=== PATIENT | female | born 1935 | race Caucasian/White ===

== ENCOUNTER 2016-12-10 03:16 | Emergency (ER) | payer MEDICARE, BC ==
[~2016-12-10] VITALS: Ht 154.9 cm; Wt 72.6 kg
[2016-12-10] MEDS ORDERED: SYNTHROID50 MCG PO (06:23)
[2016-12-10] MEDS ORDERED: CARDIZEM CD240 MG PO (06:25)
[2016-12-10] MEDS ORDERED: ELIQUIS5 MG PO (06:25)
[2016-12-10] MEDS ORDERED: ISOSORBIDE DINI20 MG PO (06:25)
[2016-12-10] MEDS ORDERED: LEXAPRO10 MG PO (06:26)
[2016-12-10] MEDS ORDERED: SINGULAIR10 MG PO (06:27)
[2016-12-10] MEDS ORDERED: PROTONIX40 MG PO (06:34)
[2016-12-10] MEDS ORDERED: LYRICA100 MG PO (06:35)
[2016-12-10] MEDS ORDERED: LIPITOR20 MG PO (06:35)
[2016-12-10] MEDS ORDERED: CENTRUM SILVER1 EAC1 PO (06:37)
[2017-04-18] MEDS ORDERED: LASIX20 MG PO (14:57)
[2017-04-18] MEDS ORDERED: KLOR-CON M1010 MEQ PO (14:57)
[2017-04-18] MEDS ORDERED: DUONEB 3.0-0.5 M3 ML INH (14:59)
[2017-04-18] MEDS ORDERED: COREG3.125 MG PO (14:59)
[2017-04-18] MEDS ORDERED: SEROQUEL25 MG PO (15:00)
[2017-04-18] MEDS ORDERED: LOTRIMIN AF28.35 GM TOP (15:00)
== END 2016-12-10 05:40 | disposition short-term general hospital (02) ==
LOC: ER 03:16
DX: I50.9 Heart failure, unspecified (principal); R09.02 Hypoxemia; I48.91 Unspecified atrial fibrillation; M19.90 Unspecified osteoarthritis, unspecified site; K59.00 Constipation, unspecified; K21.9 Gastro-esophageal reflux disease without esophagitis; E83.52 Hypercalcemia; E78.5 Hyperlipidemia, unspecified; H81.09 Meniere's disease, unspecified ear; Z98.890 Other specified postprocedural states; Z88.8 Allergy status to other drugs, medicaments and biological substances
CPT/HCPCS: J1940; J2930

== ENCOUNTER → 2017-01-03 | Outpatient (CLI) | payer MEDICARE, BC ==
[~2017-01-03] MED LIST: CARDIZEM CD240 MG PO; CENTRUM SILVER1 EAC1 PO; COREG3.125 MG PO; DUONEB 3.0-0.5 M3 ML INH; ELIQUIS5 MG PO; ISOSORBIDE DINI20 MG PO; KLOR-CON M1010 MEQ PO; LASIX20 MG PO; LEXAPRO10 MG PO; LIPITOR20 MG PO; LOTRIMIN AF28.35 GM TOP; LYRICA100 MG PO; PROTONIX40 MG PO; SEROQUEL25 MG PO; SINGULAIR10 MG PO; SYNTHROID50 MCG PO
== END | disposition short-term general hospital (02) ==
LOC: CLNEUR 10:16
DX: Z47.89 Encounter for other orthopedic aftercare (principal)

== ENCOUNTER → 2017-02-15 | Outpatient (CLI) | payer MEDICARE, BC | END | disposition short-term general hospital (02) | LOC: CLUROL 01-25 02:13 | DX: N28.89 Other specified disorders of kidney and ureter (principal) ==